=== PATIENT | female | born 1995 | race Caucasian/White ===

== ENCOUNTER 2022-07-08 12:51 | Outpatient (CLI) | payer BC, MEDICAID, SELFPAY ==
--- NOTE | 2022-07-08 13:00 | CRLHL7_ITS ---
For Patients: As a result of the Cures Act, medical imaging exams and procedure reports are released immediately into your electronic medical record. You may view this report before your referring provider. If you have questions, please contact your health care provider. INDICATION: Dating and viability. LMP 05/06/2022. COMPARISON: None. TECHNIQUE: Real-time saba-scale imaging of the pelvis was performed. FINDINGS: Sonographic imaging demonstrates a single living intrauterine gestation. The embryo has a regular cardiac rate measuring 165 beats per minute. The embryo`s crown-rump length measurement of 2.3 cm corresponds to a gestational age of 9 weeks 0 days with a sonographic due date of 02/10/2023. There is a normal-appearing yolk sac. The placenta has not yet developed. No evidence of a perigestational hemorrhage. The cervix appears closed. The right ovary measures 3.2 x 2.3 x 1.7 cm and the left ovary measures 2.8 x 1.6 x 1.6 cm. Trace free fluid in the pelvic cul-de-sac. IMPRESSION: 1. Single living intrauterine gestation with crown rump length 2.3 cm which corresponds to a gestational age of 9 weeks 0 days with a sonographic due date of 02/10/2023. 2. The clinical gestational age by LMP is 9 weeks 0 days. Dictated by Noemy Richardson MD @ 07/14/2022 1:46:17 AM (Electronically Signed)
== END 2022-07-08 12:52 | disposition home or self-care (01) ==
LOC: US 12:52
PROVIDERS: PCP Family Medicine; Visit Provider Physician Assistant
DX: Z34.91 Encounter for supervision of normal pregnancy, unspecified, first trimester (principal); Z3A.09 9 weeks gestation of pregnancy
CPT/HCPCS: 76817

== ENCOUNTER 2022-07-08 14:14 | Outpatient (CLI) | payer BC, MEDICAID, SELFPAY ==
[2022-07-08 17:53] LABS: Hepatitis B Surface Antigen* Negative (Negative)
[2022-07-08 18:02] LABS: HIV 1/2/P24 Combo Screen* Negative (Negative)
[2022-07-08 18:10] LABS: Hepatitis C Virus Antibody* Negative (Negative)
[2022-07-10 23:58] LABS: Rapid Plasma Reagin (RPR) Non Reactive (Non Reactive)
[2022-07-11 01:45] LABS: Varicella-Zoster Virus Ab, IgG 468.5 IV
[2022-07-11 01:51] LABS: Rubella Antibody IgG 9.6 IU/mL
== END 2022-07-08 14:15 | disposition home or self-care (01) ==
LOC: NFLDREF 14:14
PROVIDERS: PCP Family Medicine; Visit Provider Physician Assistant
DX: Z34.91 Encounter for supervision of normal pregnancy, unspecified, first trimester (principal)
CPT/HCPCS: 86592; 86703; 86762; 86787; 86803; 86850; 86900; 86901; 87086; 87340; 87491; 87591

== ENCOUNTER 2022-09-16 14:26 | Outpatient (CLI) | payer BC, MEDICAID, SELFPAY | END 2022-09-16 14:27 | disposition home or self-care (01) | PROVIDERS: PCP Family Medicine; Visit Provider Physician Assistant | DX: Z34.92 Encounter for supervision of normal pregnancy, unspecified, second trimester (principal); Z3A.19 19 weeks gestation of pregnancy; L65.9 Nonscarring hair loss, unspecified | CPT/HCPCS: 76805; 84443 ==

== ENCOUNTER 2022-11-09 11:27 | Outpatient (CLI) | payer BC, MEDICAID, SELFPAY ==
[2022-11-09 15:28] LABS: Chlamydia DNA Amplified* NOT DETECTED (No Detected); GC DNA Amplified* NOT DETECTED (No Detected)
== END 2022-11-09 11:28 | disposition home or self-care (01) ==
PROVIDERS: PCP Family Medicine; Visit Provider Advanced Practice Midwife
DX: N89.8 Other specified noninflammatory disorders of vagina (principal)
CPT/HCPCS: 87491; 87591

== ENCOUNTER 2022-11-17 11:17 | Outpatient (CLI) | payer BC, MEDICAID, SELFPAY ==
[2022-11-19 00:54] LABS: Rapid Plasma Reagin (RPR) Non Reactive (Non Reactive)
== END 2022-11-17 11:18 | disposition home or self-care (01) ==
PROVIDERS: PCP Family Medicine; Visit Provider Physician Assistant
DX: Z34.90 Encounter for supervision of normal pregnancy, unspecified, unspecified trimester (principal)
CPT/HCPCS: 86592

== ENCOUNTER 2022-12-01 12:18 | Outpatient (CLI) | payer BC, MEDICAID, SELFPAY ==
--- NOTE | 2022-12-01 12:30 | CRLHL7_ITS ---
For Patients: As a result of the Century Cures Act, medical imaging exams and procedure reports are released immediately into your electronic medical record. You may view this report before your referring provider. If you have questions, please contact your health care provider. INDICATION: small for gestational age COMPARISON: 09/16/2022 TECHNIQUE: Real time saba scale imaging of the fetus was performed. FINDINGS: Sonographic imaging demonstrates a single living intrauterine gestation. Fetus demonstrates a regular cardiac rate of 154 beats per minute. Fetus has a transverse position. The placenta lies anteriorly. Amniotic fluid volume appears normal and there is a single deepest vertical pocket: 6.4 cm. The estimated weight is 1434gm which lies at the 31st %. BPD 9th percentile. HC 23rd percentile. AC 50th percentile. FL 19th percentile. The HC/AC ratio measures 1.07 range (0.98-1.20). IMPRESSION: Sonographic gestational age 29 weeks 4 days and sonographic due date of 02/12/2023. Good correlation with dates. Estimated weight 31st percentile. Abdominal circumference 50th percentile. Dictated by Cj Wasserman MD @ 12/01/2022 12:59:30 PM (Electronically Signed)
== END 2022-12-01 12:19 | disposition home or self-care (01) ==
LOC: US 12:19
PROVIDERS: PCP Family Medicine; Visit Provider Physician Assistant
DX: O36.5930 Maternal care for other known or suspected poor fetal growth, third trimester, not applicable or unspecified (principal); Z3A.29 29 weeks gestation of pregnancy
CPT/HCPCS: 76816

== ENCOUNTER 2023-01-17 10:41 | Outpatient (CLI) | payer BC, MEDICAID, SELFPAY ==
[2023-01-18 11:49] LABS: Strep B DNA Probe NEGATIVE (Negative)
[2023-01-18 11:53] LABS: Strep B Pen/Amox Allergy No
== END 2023-01-17 10:42 | disposition home or self-care (01) ==
PROVIDERS: PCP Family Medicine; Visit Provider Obstetrics & Gynecology
DX: Z34.93 Encounter for supervision of normal pregnancy, unspecified, third trimester (principal); Z3A.36 36 weeks gestation of pregnancy
CPT/HCPCS: 87081; 87653

== ENCOUNTER 2023-01-31 11:22 | Outpatient (CLI) | payer BC, MEDICAID, SELFPAY ==
--- NOTE | 2023-01-31 11:30 | CRLHL7_ITS ---
For Patients: As a result of the Century Cures Act, medical imaging exams and procedure reports are released immediately into your electronic medical record. You may view this report before your referring provider. If you have questions, please contact your health care provider. INDICATION: ALMA check COMPARISON: None. TECHNIQUE: Real-time saba-scale imaging of the pelvis was performed. FINDINGS: position vertex. heart rate 143 beats per minute. Amniotic fluid volume is lower limits of normal. Single deepest pocket 5.1 cm and 4 quadrant ALMA 9.7 cm. Anterior placenta. kidneys are normal without hydronephrosis. Prominence of the bladder. IMPRESSION: Four-quadrant ALMA is 9.7 cm, lower limits of normal. Distended bladder without hydronephrosis. Dictated by Cj Wasserman MD @ 01/31/2023 12:47:25 PM (Electronically Signed)
== END 2023-01-31 11:23 | disposition home or self-care (01) ==
LOC: US 11:22
PROVIDERS: PCP Family Medicine; Visit Provider Obstetrics & Gynecology
DX: O36.5930 Maternal care for other known or suspected poor fetal growth, third trimester, not applicable or unspecified (principal); O41.00X0 Oligohydramnios, unspecified trimester, not applicable or unspecified; Z3A.38 38 weeks gestation of pregnancy
CPT/HCPCS: 76815

== ENCOUNTER 2023-02-14 16:08 | Inpatient (IN) | payer BC, MEDICAID, SELFPAY ==
[2023-02-14 16:31] VITALS: BP 122/69; PULSE 67; TEMP 36.9
[2023-02-14 16:38] VITALS: BMI 32.5
--- NOTE | 2023-02-14 16:39 | W.PM.LDBA ---
Subjective History of Present Illness Narrative: Patient is being admitted to Labor and Delivery for elective IOL. She is a 27 year old -0-1-1 woman at 40 weeks, 4 days gestation. Specific Issues/Plans 1. Family history of Down syndrome (FOB brother, mother was 45 at time of delivery) Maternity T21: neg 2. Rubella nonimmune MMR ? 3. Hairloss reported at 19 weeks TSH: 1.07 4. Measuring small for gestational age Growth US 12/01/22:?Estimated weight 31st percentile. Abdominal circumference 50th percentile. SDP 6.37 Flu shot:? has completed, date uncertain Tdap: 02/10/23 COVID vaccine:? Vaccinated and boosted Her full history and physical was dictated by Lanny Wynne on 01/26/23. Please see this for details. OB - Problem Based A/P Additional Plan (1) : Status: Acute Plan Cervical ripening with Cook catheter, placed as above. Pitocin to begin after midnight. Remove Cook catheter in 12 hours, unless rupture membranes occurs before that time. Continues monitoring with Pitocin. May use IV morphine/Vistaril for pain during early labor Delivery/Labor/Induction Plan Plan: induction Induction method: Intracervical balloon catheter OB Exam Physical Exam Vital signs: Pulse BP 67 122/69 02/14/23 16:31 02/14/23 16:31 Narrative: General: Pleasant, no acute distress Abdomen: Soft, nontender, gravid, cephalic lie Lower extremities: No edema or erythema Cervical exam: Cervix long and very posterior. I am unable to reach the internal os despite multiple attempts at repositioning. Thus, placement of Cook catheter accomplished using sterile speculum. With cervix visualized, the balloon tip of the Cook catheter was inserted through the endocervix and inflated with 30 mL of saline. The catheter was put on gentle traction found to be securely placed. Speculum was removed. The vaginal and uterine balloons were inflated to 60 mL. tracing: Baseline 150, accelerations present, no decelerations, moderate variability Contractions: Every 3- 6 minutes
[2023-02-14 17:09] LABS: SARS PCR* Negative SARS-CoV-2 (Negative)
[2023-02-14 18:57] VITALS: BP 127/69; PULSE 61
[2023-02-14 21:13] VITALS: BP 120/66; PULSE 62
[2023-02-14 21:16] VITALS: RESP 16; TEMP 36.9
[2023-02-14 22:42] LABS: Basophils Absolute Auto 0.03 K/uL (0.00-0.30); Basophils Percent Auto 0.4 % (0.0-3.0); Eosinophils Absolute Auto 0.24 K/uL (0.00-0.50); Eosinophils Percent Auto 3.1 % (0.0-7.0); Hematocrit 36.6 % (33.0-51.0); Hemoglobin* 12.9 gm/dL (12.0-16.0); Immature Granulocytes Abs Auto 0.08 K/uL (0.00-0.30); Lymphocytes Absolute Auto 2.47 K/uL (0.90-2.90); Lymphocytes Percent Auto 31.4 % (20-44); Mean Corpuscular HGB Conc 35 gm/dL (32-36); Mean Corpuscular Hemoglobin 32 pg (26-34); Mean Corpuscular Volume 90 fL (80-100); Monocytes Percent Auto 7.6 % (0.0-11.0); Neutrophils Absolute Auto 4.44 K/uL (1.7-7.0); Neutrophils Percent Auto 56.5 % (42.0-72.0); Platelet Count* 202 K/uL (140-440); RDW Coefficient of Variation % 13.1 % (11.5-15.5); Red Blood Count 4.09 m/uL (4.00-5.20); White Blood Count* 7.86 K/uL (4.50-11.00)
[2023-02-14 22:44] LABS: Slide Review Reflex No
[2023-02-14 23:15] VITALS: BP 137/74; PULSE 55
[2023-02-14 23:24] VITALS: RESP 16; TEMP 36.9
[2023-02-15] VITALS (88 sets, daily range): BP systolic 90–134; BP diastolic 49–80; PULSE 52–105; RESP 15–18; TEMP 36.6–37.1; O2SAT 98–100
[2023-02-15] MEDS: LACTATED RINGERS 1000 ML 1,000 ML 125 ML IV ×2 (01:52→15:20)
[2023-02-15] MEDS: OXYTOCIN 30 unit/500 ML in NS 30 UNIT/500 ML BAG IVPB ×2 (02:05→16:58)
--- NOTE | 2023-02-15 08:30 | P.OBPN_ITS ---
Subjective Date Seen: 02/15/23 Narrative: Feeling okay Objective Vital Signs: Last Vital Signs Temp 98.1 F 02/15/23 07:32 Pulse 68 02/15/23 07:32 Resp 16 02/15/23 07:32 BP 116/55 L 02/15/23 07:32 Pelvic Exam Dilation (cm): 4 Effacement (%): 75 Station: -2 Contractions Monitor mode: External Contraction pattern: Regular Contraction intensity: Mild Pitocin Rate (mU/min): 4 Assessment Assessment: induction ongoing Station: -2 Status: Category ll Heart Rate Baseline: 130 Waistline Joiner Lockstitch Variability: Moderate (6-25) Monitor Accelerations: Present Monitor Decelerations: Variable Tracing Comments: Variable decelerations noted, at this time not significant, will continue to monitor closely. Labor Progress: Normal Maternal Status: Stable Plan Plan: 1. Continue increasing IV oxytocin, if tracing becomes persistently a category 2 may need to stop Oxytocin and reassess labor progress for possible AROM instead of oxytocin. 2. GBS negative no need for antibiotics. 3. For pain would not recommend IV pain meds at this moment, she would like to try Nitrous first if not enough she will plan to proceed with epidural. 4. Continuos monitoring.
[2023-02-15] MEDS: LACTATED RINGERS 1000 ML 1,000 ML 1118 ML IV (10:22)
[2023-02-15] MEDS: fentaNYL 250 MCG/5 ML inj 100 MCG EPIDURAL (10:45)
[2023-02-15] MEDS: ROPIVACAINE 0.2% 100 ml 100 ML 12 MG EPIDURAL (10:49)
[2023-02-15] MEDS: LIDOCAINE 2% (PF) 5 ML VIAL EPIDURAL ×2 (10:49→12:27)
--- NOTE | 2023-02-15 11:04 | P.ANBPRC_ITS ---
[facility] Medical History (Updated 02/14/23 @ 17:44 by Kassidy Hernández MD) History of use of contraceptive intrauterine device (IUD) ?Z92.0 - Personal history of contraception (ICD-10) History of vaginal delivery Family History (Updated 06/17/22 @ 10:25 by Shivani Kovacs) Maternal Grandmother Blood disorder Mother High cholesterol Social History Smoking Status: Never smoker Little interest or pleasure in doing things: several days Feeling down, depressed, or hopeless: not at all Meds Home Medications and Allergies Home Medications Medication Instructions Recorded Confirmed Type docosahexaenoic acid 200 mg mg PO 07/08/22 02/08/23 History capsule ( DHA) Allergies Allergy/AdvReac Type Severity Reaction Status Date / Time No Known Allergies Allergy Unknown Unverified 02/08/23 09:26 Results Labs Labs: Laboratory Results - last 24 hr 02/14/23 02/14/23 16:20 22:25 WBC 7.86 RBC 4.09 Hgb 12.9 Hct 36.6 MCV 90 MCH 32 MCHC 35 RDW Coeff of Andres 13.1 Plt Count 202 Neut % (Auto) 56.5 Lymph % (Auto) 31.4 [place] % (Auto) 7.6 Eos % (Auto) 3.1 Baso % (Auto) 0.4 Neut # (Auto) 4.44 Lymph # (Auto) 2.47 [place] # (Auto) 0.60 Eos # (Auto) 0.24 Baso # (Auto) 0.03 SARS-CoV-2 (PCR) Negative SARS-CoV-2 Blood Type O Positive Antibody Screen NEGATIVE Vital Signs Vital Signs: Last Vital Signs Temp 98.1 F 02/15/23 07:32 Pulse 67 02/15/23 11:02 Resp 16 02/15/23 07:32 BP 107/56 L 02/15/23 11:02 Pulse Ox 100 02/15/23 10:59 Weight: 80.739 kg Height: 157.48 cm Anesthesia Procedures Epidural Insertion Patient Location: OB Start Time: 10:00 Stop Time: 11:00 Start Date: 02/15/23 Stop Date: 02/15/23 Reason for Block: primary anesthetic Patient Position: sitting Performed By: Phillip Collins Preanesthetic Checklist: IV checked, risks and benefits discussed, surgical consent, monitors and equipment checked, pre-op evaluation, timeout performed and anesthesia consent Prep: chlorhexidine gluconate Monitoring: blood pressure monitoring, national coverage specialist, continuous pulse oximetry and heart rate Approach: midline Vertebral Space: lumbar (1-5) Needle Type: Tuohy needle Injection Technique: continuous catheter Needle gauge: 17 Needle Length (cm): 10 cm Needle Insertion Depth (cm): 6 Catheter Gauge: 19 Catheter Type: multi-orifice Catheter at skin depth (cm): 12 Test Dose Result: negative and lidocaine 1.5% with epinephrine 1 to 200,000 Events: other
--- NOTE | 2023-02-15 12:46 | PM.OBPNL ---
Subjective Date Seen: 02/15/23 Narrative: Epidural is not working well Objective Vital Signs: Last Vital Signs Temp 98.1 F 02/15/23 07:32 Pulse 68 02/15/23 12:34 Resp 16 02/15/23 07:32 BP 134/69 02/15/23 12:34 Pulse Ox 100 02/15/23 11:09 Pelvic Exam Dilation (cm): 7 Effacement (%): 90 Station: 0 Contractions Monitor mode: External Contraction pattern: Regular Contraction intensity: Strong/Firm Pitocin Rate (mU/min): 0 Assessment Assessment: induction ongoing Station: 0 Amniotic Membrane Status: SROM Status: Category ll Heart Rate Baseline: 130 Picker Box Operator Variability: Moderate (6-25) Monitor Accelerations: Present Monitor Decelerations: Variable Tracing Comments: Patient asked for epidural at around 9:30am, after placement I went in and checkd her since she was complaining of more pelvic pressure and I then checked her at around 11:30am. With cervical check and uterine contraction she has SROM. After this time, NST has been showing repetitive variable decelerations that have gotten deeper, oxytocin was stopped. Her epidural was re bolused and she was tilted towards the right side to see if this helped with pain, this was unsuccessful. I was asked by nurse to come in to re evaluate cervical check since they could not feel presenting part. Cervical check 7cm/90%/VX/-1 to 0 station with uterine contraction. I was able to palpate anterior fontanelle posteriorly at this point. Maternal Status: In pain, epidural not working well, we have been unable to try position changes. Plan Plan: NST repetitive early/variable decelerations, will try position changes after epidural is re placed. Otherwise we can also try amnioinfusion. She has been progressing well. Moderate variability and accelerations present with scalp stimulation. Will follow up very closely.
[2023-02-15] MEDS: fentaNYL 100 MCG/2 ML inj 50 MCG IVP (12:51)
--- NOTE | 2023-02-15 13:20 | PM.ANBPRC ---
[facility] Medical History (Updated 02/14/23 @ 17:44 by Kassidy Hernández MD) History of use of contraceptive intrauterine device (IUD) ?Z92.0 - Personal history of contraception (ICD-10) History of vaginal delivery Family History (Updated 06/17/22 @ 10:25 by Shivani Kovacs) Maternal Grandmother Blood disorder Mother High cholesterol Social History Smoking Status: Never smoker Little interest or pleasure in doing things: several days Feeling down, depressed, or hopeless: not at all Meds Home Medications and Allergies Home Medications Medication Instructions Recorded Confirmed Type docosahexaenoic acid 200 mg mg PO 07/08/22 02/08/23 History capsule ( DHA) Allergies Allergy/AdvReac Type Severity Reaction Status Date / Time No Known Allergies Allergy Unknown Unverified 02/08/23 09:26 Results Labs Labs: Laboratory Results - last 24 hr 02/14/23 02/14/23 16:20 22:25 WBC 7.86 RBC 4.09 Hgb 12.9 Hct 36.6 MCV 90 MCH 32 MCHC 35 RDW Coeff of Andres 13.1 Plt Count 202 Neut % (Auto) 56.5 Lymph % (Auto) 31.4 [place] % (Auto) 7.6 Eos % (Auto) 3.1 Baso % (Auto) 0.4 Neut # (Auto) 4.44 Lymph # (Auto) 2.47 [place] # (Auto) 0.60 Eos # (Auto) 0.24 Baso # (Auto) 0.03 SARS-CoV-2 (PCR) Negative SARS-CoV-2 Blood Type O Positive Antibody Screen NEGATIVE Vital Signs Vital Signs: Last Vital Signs Temp 98.1 F 02/15/23 07:32 Pulse 75 02/15/23 13:19 Resp 16 02/15/23 07:32 BP 102/58 L 02/15/23 13:19 Pulse Ox 100 02/15/23 13:06 Weight: 80.739 kg Height: 157.48 cm Anesthesia Procedures Epidural Insertion Patient Location: OB Start Time: 13:00 Stop Time: 13:30 Start Date: 02/15/23 Stop Date: 02/15/23 Reason for Block: procedure for pain Patient Position: sitting Performed By: Gomez Bardales Preanesthetic Checklist: IV checked, site marked, risks and benefits discussed, monitors and equipment checked, pre-op evaluation, timeout performed and anesthesia consent Prep: chlorhexidine gluconate Monitoring: blood pressure monitoring, continuous pulse oximetry and heart rate Approach: midline Vertebral Space: lumbar (1-5) Epidural Technique: TALYA air Needle Type: Tuohy needle Injection Technique: continuous catheter Needle gauge: 17 Needle Insertion Depth (cm): 6 Catheter Gauge: 19 Catheter Type: multi-orifice Catheter at skin depth (cm): 11
[2023-02-15] MEDS: fentaNYL 100 MCG/2 ML inj EPIDURAL (13:31)
[2023-02-15] MEDS: LACTATED RINGERS 1000 ML 1,000 ML 118 ML IV (14:07)
[2023-02-15] MEDS: ONDANSETRON 2 MG/ML inj 4 MG IV (14:08)
--- NOTE | 2023-02-15 14:32 | P.OBPN_ITS ---
Subjective Time Seen by Provider: 14:32 Date Seen: 02/15/23 Narrative: Better Objective Vital Signs: Last Vital Signs Temp 98.1 F 02/15/23 07:32 Pulse 75 02/15/23 14:24 Resp 16 02/15/23 07:32 BP 121/53 L 02/15/23 14:24 Pulse Ox 100 02/15/23 13:06 Pelvic Exam Dilation (cm): 7-8 Effacement (%): 90 Station: 0 Contractions Monitor mode: External Contraction pattern: Regular Contraction intensity: Moderate Pitocin Rate (mU/min): 0 Assessment Assessment: induction ongoing Station: 0 Amniotic Membrane Status: SROM Status: Category ll Heart Rate Baseline: 120 Civil Engineering Director Variability: Moderate (6-25) Monitor Accelerations: Present Monitor Decelerations: Variable Labor Progress: Epidural re placed and working well. Oxytocin has been discontinued due to repetitive variable decelerations. At this moment tracing was showing what was concerning for late like decelerations. Upon cervical check cervix is essentially unchanged. Recommendation given for placement of internal monitors. Currently with iternal monitor, tracing shows good variability and accelerations , no recurrent decelerations. Plan Plan: Will continue to monitor tracing closely. Patient is resting comfortably now. Will plan to recheck cervix in about 2-3 hours. If no more frequent decelerations in about 1 hour, will plan to restart IV Oxytocin.
[2023-02-15] MEDS: PHENYLEPHRINE 100 MCG/ML SYRINGE IVP ×2 (15:55→17:10)
--- NOTE | 2023-02-15 18:22 | PM.OBPNL ---
Subjective Time Seen by Provider: 18:22 Date Seen: 02/15/23 Narrative: Okay Objective Vital Signs: Last Vital Signs Temp 98.5 F 02/15/23 16:00 Pulse 70 02/15/23 17:51 Resp 16 02/15/23 16:00 BP 116/59 L 02/15/23 17:51 Pulse Ox 100 02/15/23 13:06 Pelvic Exam Dilation (cm): 9 Effacement (%): 90 Station: 0 Contractions Monitor mode: Internal Contraction pattern: Regular Contraction intensity: Moderate Pitocin Rate (mU/min): 0 Assessment Assessment: induction ongoing Station: 0 Amniotic Membrane Status: SROM Status: Category ll Heart Rate Baseline: 140 Underwriting Support Specialist Variability: Moderate (6-25) Monitor Accelerations: Present Monitor Decelerations: Variable Labor Progress: Protracted Maternal Status: Stable Plan Plan: No additional cervical change in about 2- 2 1/2 hours. Tracing continues with early/variable decelerations that are repetitive at this moment becoming more prolonged. I checked her at around 4pm and discussed 2 options, trying to restart oxytocin again vs proceeding with delivery. I discussed with patient and that I was concerned that baby was not lower in station and that this finding with NST findings are very suspicious that baby is larger for her pelvis and/or there is a cord wrapped around baby that was preventing baby to come down. Patient decided to do a trial of restarting oxytocin. After about 1 hour of Oxytocin decelerations are now seen to be more prolonged. Tracing has maintained moderate variability and accelerations most of the time, there are accelerations with scalp stimulation, but with my cervical check at this time (around 6:15pm), again there is no movement. (If cervical change and improvement in station would have been detected then I could have tried/offered amnioinfusion but this does not seen to be the only issue.)At this time I recommended proceeding with delivery. Patient agrees. Discussed informed consent, discussed how surgery is performed, risks associated with surgery such as bleeding, infection, damage to nearby organs, blood clots. Discussed interventions we do to decrease these risks. Discussed family centered section. Discussed how recovery differs between a vaginal delivery and . Will proceed with section now, due to arrest of dilation, persistent category 2 heart rate tracing.
[2023-02-15] MEDS: LACTATED RINGERS 1000 ML 1,000 ML 1125 ML IV ×2 (18:47→19:41)
[2023-02-15] MEDS: CEFAZOLIN 2 GM INJ IVP (19:05)
[2023-02-15] MEDS: AZITHROMYCIN 500 MG in 0.9 % SODIUM CHLORIDE 250 ml 250 ML 255 MG IVPB (19:10)
--- NOTE | 2023-02-15 20:18 | PM.OBPRCCS ---
Procedure Pre-op/Post-op diagnoses: Pre-Op/Post-Op Diagnoses Preoperative Diagnosis: 1. IUP at 40 5/7 weeks 2. Persistent category 2 tracing 3. Protracted active phase of labor Postoperative Diagnosis: 1. Same, now delivered 2. hemorrhage 3. Bilateral small paratubal cysts Procedure Done: Global Procedure Details: Procedures Operation Date: 02/15/23 19:00 Actual Procedure Side Surgeon p Section Not Applicable Yoon Hubbard MD Estimated blood loss (mL): 1,015 Disposition: floor Anesthesia type: Epidural Complications: PPH due to bleeding hysterotomy, lower uterine segment atony Narrative: NAME OF PROCEDURE: Primary low transverse section, bilateral paratubal cyst removal. ANESTHESIA: Epidural. COMPLICATIONS: PPH, hysterotomy, lower uterine segment atony QUANTITATIVE BLOOD LOSS: 1015mL DRAINS: Mc to gravity. FINDINGS: Live-born female infant, vertex ROT presentation, Apgars 9 and 9 at 1 and 5 minutes respectively. weight 6 lb 11 oz. Umbilical cord looked super coiled and short. Placenta sent to pathology. Bilateral paratubal cysts, on the right side measured about 1cm and had a different smaller area of brownish coloration, sent to pathology, on the left side another small paratubal cyst seen and removed of about 1cm this was filled with a clear fluid, not sent to pathology. PROCEDURE: After obtaining informed consent, the patient was taken to the operating room where spinal anesthesia was found to be adequate. She was prepared and draped in the normal sterile fashion in the dorsal supine position with a leftward tilt. A Pfannenstiel skin incision was made with a scalpel about 2 cm above symphysis pubic bone, 8-10 cm in length. This incision was carried down to the underlying layer of fascia with the Bovie and scalpel. The fascia was incised in the midline and the incision extended laterally. The rectus muscles were then in the midline. The Jeremías O retractor was then placed into the incision. The lower uterine segment was then incised in a transverse fashion with the scalpel. Upon entry into the uterus, meconium stained amniotic fluid was noted. The uterine incision was extended cephalo caudally with blunt finger fractionation. Umbical cord was immediately seen, head was then brought up to incision and with fundal pressure baby was delivered atraumatically. The cord was doubly clamped and cut, and the was handed off the field to warm for evaluation. The placenta was delivered spontaneously with umbilical cord traction and fundal massage. The uterus was cleared of all clots and debris. The uterine incision was reapproximated in a running locking fashion with a 0 Vicryl suture. A 2nd layer of the same suture was used to imbricate in horizontal fashion. A couple of figure of 8 stitches made over the hysterotomy to further secure hemostasis, this was done with additional 0 Vicryl suture. Bleeding vessels from bladder reflection serosa coagulated with hemostat and Nani also utilized to further secure hemostasis due to persistent slow oozing. The gutters were inspected and cleared of blood clot. Paratubal cysts previously described were removed by coagulation and cut with hemostat, hemostasis was secured, this same procedure was performed bilaterally. All instruments and retractors were removed. The subfascial tissues were carefully inspected and hemostasis assured. The fascia was reapproximated in a running fashion with a looped 0 Vicryl suture. The subcutaneous tissues were inspected and hemostasis was assured. The subcutaneous fat layer was reapproximated with interrupted sutures of 3-0 Vicryl. The skin was closed in a subcuticular fashion with 4-0 Monocryl. Pressure dressing applied. The patient tolerated the procedure well. Sponge, lap, needle, and instrument counts were reported as correct x2. The patient was taken to the recovery room, awake, and in stable condition. She did receive 2 grams of IV Ancef, 500mg of Azithromycin preoperatively as well as 1g of TXA after cord clamping.
--- NOTE | 2023-02-15 20:54 | W.ANESCHARGE ---
Anesthesia Charges Start Date/Time Anesthesia Start Date: 02/15/23 Anesthesia Start Time: 19:02 Stop Date/Time Anesthesia Stop Date: 02/15/23 Anesthesia Stop Time: 20:45 Summary Emergency: LEAD SYSTEMS ANALYST
--- NOTE | 2023-02-15 20:55 | P.NB_ITS ---
Nerve Block Nerve Block Time Seen by Provider: 20:35 Date Seen: 02/15/23 Side: bilateral Time out performed: Yes Verification of patient name: Yes Verification of date of : Yes Site marking: not applicable Name of person performing procedure: Gomez Bardales Continuous monitoring Was continuous monitoring of O2 sat, B/P, air sampling and monitoring, recorded every 15 minutes?: Yes Procedure Checklist: sterile prep, needles and gloves Ultrasound guided. Images saved: Yes Medications given in 5ml increments after negative aspiration: Marcaine %: 0.25 mL: 15 Needle gauge: 20 and Exparel mL: 5 Needle gauge: 20 Patient tolerated procedure well: Yes
[2023-02-16] VITALS (18 sets, daily range): BP systolic 97–121; BP diastolic 58–72; PULSE 62–89; RESP 14–18; TEMP 36.5–36.9; O2SAT 97–100
[2023-02-16] MEDS: KETOROLAC 30 MG/ML inj IVP ×4 (02:18→21:04)
[2023-02-16] MEDS: SODIUM CHLORIDE 0.9 % (FLUSH) 10 ML SYRINGE IVF (02:19)
[2023-02-16 07:08] LABS: Hemoglobin* 9.9 gm/dL (12.0-16.0)
--- NOTE | 2023-02-16 08:17 | P.OBPN_ITS ---
OB - PN: A/P Assessment and Plan (1) : Status: Acute (2) Lactating mother: Status: Acute (3) examination following delivery: Status: Acute Plan day: 1 Plan: routine postop care Comments: 32 year old on day 1.? 1. Routine cares.? 2. Anticipate discharge tomorrow or Monday.? OB - PN: Subj Subjective Date Seen: 02/16/23 Patient comments: no complaints, pain well controlled, tolerating diet and flatus present status: and doing well [place] feeding status: breast and bottle feeding Narrative: Day 1:? Vaginal Delivery at 40 and 5/7 weeks.? ?? Complications:? none? The patient feels well.? The pain is well controlled with current medications.? She has no new complaints.? She has not yet ambulated but plans to in about an hour.? Has a good appetite, is tolerating a general diet, is passing flatus, and has not had a bowel movement.? Has scant amount of rubra lochia.? She is ambulating well.?Hemoglobin is 9.9 so will start PO iron supplementation today. OB - PN: Obj Exam Physical Exam: Vital signs: Temp Pulse Resp BP Pulse Ox O2 Del Method 98.4 F 63 14 98/62 98 Room Air 02/16/23 05:07 02/16/23 05:07 02/16/23 07:01 02/16/23 05:07 02/16/23 05:07 02/16/23 05:07 Constitutional: Constitutional: no acute distress Routine Neck Exam: Neck: Present full ROM Routine Respiratory Exam: Respiratory: Present CTA bilaterally Routine Cardiovascular Exam: Cardiovascular: Present RRR Routine Abdominal Exam: Abdominal: Present normal bowel sounds, soft and tenderness Fundus: Present firm Comments: fundus U/2 Routine Extremities Exam: Extremities: Present normal inspection Routine Psychiatric Exam: Psychiatric: Present normal affect Wound Management: Examination: Present dressed, clean, dry and intact OB - PN: Obj Data Labs Labs: Laboratory Results - last 24 hr 02/16/23 06:42 Hgb 9.9 L
[2023-02-16] MEDS: DOCUSATE SODIUM 100 MG CAPSULE PO (08:51)
[2023-02-16] MEDS: ACETAMINOPHEN 500 MG TABLET 1000 MG PO (11:50)
[2023-02-17] MEDS: KETOROLAC 30 MG/ML inj IVP (03:25)
[2023-02-17] MEDS: ACETAMINOPHEN 500 MG TABLET 1000 MG PO ×2 (03:26→09:52)
[2023-02-17 03:33] VITALS: BP 110/74; PULSE 61; RESP 18; TEMP 37.2; O2SAT 100
[2023-02-17] MEDS: DOCUSATE SODIUM 100 MG CAPSULE PO (07:22)
[2023-02-17 07:24] VITALS: BP 110/72; PULSE 57; RESP 16; TEMP 36.8; O2SAT 99
[2023-02-17] MEDS: IBUPROFEN 600 MG TABLET PO (07:44)
--- NOTE | 2023-02-17 07:52 | PM.OBDSCS1 ---
Documented by User: Lele Sinclair 02/17/23 08:10 DS: Providers Provider Date Seen: 02/17/23 Date of admission: 02/14/23 16:08 Primary care physician: Graciela Roth MD Admitting Clinician: Kassidy Hernández MD Attending Physician on discharge: Jennifer Huang CNM with Lele GALDAMEZ Date of Discharge: 02/17/23 DS: Diagnosis Discharge Diagnosis (1) examination following delivery: Status: Acute (2) Lactating mother: Status: Acute (3) Anemia due to acute blood loss: Status: Acute Exam Narrative: Exam Narrative: GENERAL APPEARANCE:? normal affect, alert, no distress? MOOD:? appropriate? CHEST:? clear to auscultation? HEART:? regular rate and rhythm? ABDOMEN:? soft, non-tender the uterine fundus is firm At Umbilicus, Midline and is appropriate for the stage of recovery.? EXTREMITIES:? normal and no edema Const: Vital Signs, click to edit/add: Vital Signs - 24 hr 02/16/23 08:00 02/16/23 08:00 02/16/23 08:45 Temperature 97.8 F Pulse Rate [Pulse Oximeter] 62 Respiratory Rate 16 16 16 Blood Pressure [Le ft Arm] 101/67 Pulse Oximetry 98 Oxygen Delivery Me thod Room Air 02/16/23 09:50 02/16/23 13:01 02/16/23 13:01 Temperature 97.7 F Pulse Rate [Pulse Oximeter] 72 Respiratory Rate 16 16 16 Blood Pressure [Le ft Arm] 103/69 Pulse Oximetry 100 Oxygen Delivery Me thod Room Air 02/16/23 10:30 02/16/23 11:45 02/16/23 16:02 Temperature 98.1 F Pulse Rate [Pulse Oximeter] 89 Respiratory Rate 16 16 18 Blood Pressure [Le ft Arm] 121/72 Pulse Oximetry 100 Oxygen Delivery Me thod Room Air 02/16/23 14:00 02/16/23 19:00 02/16/23 15:00 Temperature Pulse Rate [Pulse Oximeter] Respiratory Rate 16 16 18 Blood Pressure [Le ft Arm] Pulse Oximetry Oxygen Delivery Me thod 02/16/23 16:00 02/16/23 17:00 02/16/23 18:00 Temperature Pulse Rate [Pulse Oximeter] Respiratory Rate 16 16 16 Blood Pressure [Le ft Arm] Pulse Oximetry Oxygen Delivery Me thod 02/16/23 19:53 02/17/23 03:33 02/17/23 07:24 Temperature 97.9 F 98.9 F 98.2 F Pulse Rate [Pulse Oximeter] 73 61 57 L Respiratory Rate 18 18 16 Blood Pressure [Le ft Arm] 97/58 L 110/74 110/72 Pulse Oximetry 100 100 99 Oxygen Delivery Me thod Room Air Room Air Room Air Documenting provider has reviewed patient's vital signs: yes OB - DS: Summary Hospital Course Hospital Course: Bryanna is a 27 year old G 3 P 2 at 40.4 weeks gestation that was admitted to the [facility] on 02/14/23 for elective IOL . She had an uncomplicated delivery for failure to decend and non-reassuring heart tones. She delivered a viable female . She is breast feeding. the patient has done well. The pain is well controlled with current medications.? She has no new complaints.? Urinary output is adequate and she is voiding without difficulty.? Has a good appetite, is tolerating a general diet, is passing flatus, and has not yet had a bowel movement.? Has scant amount of rubra lochia.? She is ambulating well. She is and reports it is going well. Plans to use an IUD for control. Peripartum Data Procedures: Procedures Operation Date: 02/15/23 19:00 Actual Procedure Side Surgeon p Section Not Applicable Yoon Hubbard MD complications: none [place] Gender: Female Infant Discharge Plan: Home Status at Discharge Functional status at discharge: independent ambulation Overall status at discharge: patient is progressing back to baseline Time Spent with Patient Time attestation: Total time spent providing and/or coordinating discharge services: Time spent: Less than 30 minutes Discharge Plan Discharge Disposition: Home, Self-Care Date of Admission: 02/14/23 16:08 Attending Provider on Discharge: Jennifer Huang Primary Care Provider: Graciela Roth Condition: Stable Anticipated Discharge Date/Time: 02/17/23 12:00 Discharge Medications: New acetaminophen 500 mg Tablet 1,000 mg PO Q6H PRN (Reason: Pain) Qty: 0 0RF docusate sodium 100 mg Capsule 100 mg PO DAILY Qty: 90 0RF ibuprofen 600 mg Tablet 600 mg PO Q6H PRN (Reason: Pain) Qty: 60 0RF oxycodone 5 mg Tablet 5 - 10 mg PO Q4H PRN (Reason: Pain) Qty: 20 0RF ferrous sulfate 325 mg (65 mg iron) tablet 325 mg PO DAILY Qty: 90 0RF Continued DHA 200 mg capsule PO Discharge Orders: Discharge Order (Routine); Ordered 02/17/23 Ordered By: Jennifer Huang Patient Education: OB Over the Counter Medication Information, OB /Breast Feeding Additional Instructions: Discharge instructions were reviewed with the patient including signs and symptoms of infection and home going medications Lifting Restrictions: 20 pounds for 6 weeks No not submerge incision under water X 2 weeks? Nothing vaginally for 6 weeks: no tampons or intercourse Do not drive while taking narcotic pain medication(s) Off Work or School for 8 weeks 2-week visit: incision check, discuss feeding concerns, review control options and screen for anxiety/depression. 6-week visit for an annual exam. consultation services are available to all mothers and babies for the first year after delivery.? To make an appointment, please call [phone]. Activity Level: Activity as Tolerated Discharge Diet: Regular Follow Up Appointments: [facility] [Provider Group] Forms: [facility] Info Instructions Documented by User: Jennifer Huang CNM 02/17/23 08:23 DS: Providers Provider Attending Physician on discharge: Lele GALDAMEZ with supervision by Jennifer Huang CNM DS: Diagnosis Discharge Diagnosis (1) examination following delivery: Status: Acute (2) Lactating mother: Status: Acute (3) Anemia due to acute blood loss: Status: Acute OB - DS: Summary Hospital Course Hospital Course: Bryanna is a 27 year old G 3 P 2 at 40.4 weeks gestation that was admitted to the Center on 02/14/23 for elective IOL. She had an uncomplicated delivery for failure to decend and non-reassuring heart tones. She delivered a viable female . She is breast feeding. the patient has done well. The pain is well controlled with current medications.? She has no new complaints.? Urinary output is adequate and she is voiding without difficulty.? Has a good appetite, is tolerating a general diet, is passing flatus, and has not yet had a bowel movement.? Has scant amount of rubra lochia.? She is ambulating well. She is and reports it is going well. Plans to use an IUD for control. Discharge Plan Discharge Disposition: Home, Self-Care Date of Admission: 02/14/23 16:08 Attending Provider on Discharge: Jennifer Huang Primary Care Provider: Graciela Roth Condition: Stable Anticipated Discharge Date/Time: 02/17/23 12:00 Discharge Medications: New acetaminophen 500 mg Tablet 1,000 mg PO Q6H PRN (Reason: Pain) Qty: 0 0RF docusate sodium 100 mg Capsule 100 mg PO DAILY Qty: 90 0RF ibuprofen 600 mg Tablet 600 mg PO Q6H PRN (Reason: Pain) Qty: 60 0RF oxycodone 5 mg Tablet 5 - 10 mg PO Q4H PRN (Reason: Pain) Qty: 20 0RF ferrous sulfate 325 mg (65 mg iron) tablet 325 mg PO DAILY Qty: 90 0RF Continued DHA 200 mg capsule PO Discharge Orders: Discharge Order (Routine); Ordered 02/17/23 Ordered By: Jennifer Huang Patient Education: OB Over the Counter Medication Information, OB /Breast Feeding Additional Instructions: Discharge instructions were reviewed with the patient including signs and symptoms of infection and home going medications Lifting Restrictions: 20 pounds for 6 weeks No not submerge incision under water X 2 weeks? Nothing vaginally for 6 weeks: no tampons or intercourse Do not drive while taking narcotic pain medication(s) Off Work or School for 8 weeks 2-week visit: incision check, discuss infant feeding concerns, review control options and screen for anxiety/depression. 6-week visit for an annual exam. consultation services are available to all mothers and babies for the first year after delivery.? To make an appointment, please call [phone]. Activity Level: Activity as Tolerated Discharge Diet: Regular Follow Up Appointments: [facility] [Provider Group] Forms: [facility] Info Instructions
--- NOTE | 2023-02-17 18:41 | PC.NURSE ---
Patient rubella equivocal. MMR scheduled for 2 week visit per Emilia Huang CNM.
== END 2023-02-17 11:40 | disposition home or self-care (01) | DRG 540 ==
PROVIDERS: Obstetrics & Gynecology; Admitting Provider Obstetrics & Gynecology; PCP Family Medicine; Visit Provider Obstetrics & Gynecology
PROC: 10D00Z1 Extraction of Products of Conception, Low, Open Approach (ICD-10-PCS; CPT 59514; principal; 2023-02-15 18:45)
DX: O76 Abnormality in fetal heart rate and rhythm complicating labor and delivery (principal); O32.4XX0 Maternal care for high head at term, not applicable or unspecified; O72.1 Other immediate postpartum hemorrhage; O34.83 Maternal care for other abnormalities of pelvic organs, third trimester; N83.8 Other noninflammatory disorders of ovary, fallopian tube and broad ligament; O90.81 Anemia of the puerperium; D62 Acute posthemorrhagic anemia; Z3A.40 40 weeks gestation of pregnancy; Z37.0 Single live birth
CPT/HCPCS: 01967; 01968; 36415; 59200; 85018; 85025; 86850; 86900; 86901; 87635; 88304; 88307; 99140; A9270; C1726; C9290; J0456; J0690; J1885; J2274; J2370; J2405; J2590; J2795; J3010; J3490; J7050; J7120

== ENCOUNTER 2024-01-01 15:21 | Outpatient (REF) | payer BC, MEDICAID, SELFPAY | END 2024-01-01 15:22 | disposition home or self-care (01) | LOC: NFLDREF 15:21 | PROVIDERS: PCP Family Medicine; Referring Provider Family Medicine; Visit Provider Physician Assistant | DX: Z13.220 Encounter for screening for lipoid disorders (principal); Z13.1 Encounter for screening for diabetes mellitus; Z13.29 Encounter for screening for other suspected endocrine disorder | CPT/HCPCS: 80061; 82947; 84443 ==

== ENCOUNTER 2025-07-22 08:53 | Outpatient (CLI) | payer BC, SELFPAY | END 2025-07-22 08:54 | disposition home or self-care (01) | LOC: NFLDREF 07-27 22:58 | PROVIDERS: PCP Family Medicine; Referring Provider Family Medicine; Visit Provider Physician Assistant | DX: Z13.9 Encounter for screening, unspecified (principal) | CPT/HCPCS: 80061; 82306; 82947; 84443 ==